=== PATIENT | female | born 1955 | race Caucasian/White ===

== ENCOUNTER 2017-12-09 16:46 | Emergency (ER) | payer MEDICARE, BC ==
[~2017-12-09] VITALS: Ht 152.4 cm; Wt 58.5 kg
[~2017-12-09 16:46] MED LIST: ABSORICA40 MG; ALPR.25 PO; CYAN1000I; ESTRADIOL TRAN TD; FURO40 PO; HYDCHL25; HYDPAM50; HYDR1TAB94; Hydroxyzine HCl50 MG PO; LAMO100; LOSA50; Micro-K10 MEQ PO; PANT40; PARO20; POTCHL10ER; PROP10 PO; RANI150; VERA120ERB; ZOLP10
== END 2017-12-09 17:21 | disposition home or self-care (01) ==
LOC: ER 16:46
DX: S61.011D Laceration without foreign body of right thumb without damage to nail, subsequent encounter (principal); I10 Essential (primary) hypertension; K21.9 Gastro-esophageal reflux disease without esophagitis; F41.9 Anxiety disorder, unspecified; Z88.8 Allergy status to other drugs, medicaments and biological substances; Z79.899 Other long term (current) drug therapy; W26.8XXD Contact with other sharp object(s), not elsewhere classified, subsequent encounter
CPT/HCPCS: 99281

== ENCOUNTER 2017-12-24 12:34 | Day surgery (SDC) | payer MEDICARE, BC ==
[~2017-12-24] VITALS: Ht 149.9 cm; Wt 59.0 kg
[2017-12-24] MEDS ORDERED: ALUM320SU (12:52)
== END 2017-12-24 13:52 | disposition home or self-care (01) ==
LOC: ORSCSDS 12:34
PROVIDERS: Internal Medicine Gastroenterology
PROC: 0DB68ZX Excision of Stomach, Via Natural or Artificial Opening Endoscopic, Diagnostic (ICD-10-PCS; principal; 2017-12-24 13:45)
PROC: 0DB98ZX Excision of Duodenum, Via Natural or Artificial Opening Endoscopic, Diagnostic (ICD-10-PCS; principal; 2017-12-24 13:45)
DX: K27.9 Peptic ulcer, site unspecified, unspecified as acute or chronic, without hemorrhage or perforation (principal); K21.9 Gastro-esophageal reflux disease without esophagitis; I10 Essential (primary) hypertension; E78.5 Hyperlipidemia, unspecified; R13.10 Dysphagia, unspecified; Z79.899 Other long term (current) drug therapy
CPT/HCPCS: 88305; 88342; J7120

== ENCOUNTER → 2019-03-29 | Outpatient (CLI) | payer MEDICARE, BC ==
[~2019-03-29] MED LIST changes: +ALUM320SU
[2019-03-29 15:10] LABS: Magnesium, Blood 1.7 mg/dL (1.6-2.4); Potassium, Blood 3.8 mmol/L (3.5-5.5)
[2019-03-29 15:25] LABS: Alanine Aminotransfer (ALT/SGP 29 U/L (12-78); Albumin, Blood 3.8 g/dL (3.4-5.0); Albumin/Globulin Ratio 1.5 (0.8-1.8); Alk Phos 83 U/L (50-136); Anion Gap 8 mmol/L (6-16); Aspartate Aminotrans (AST/SGOT 16 U/L (12-37); Bilirubin, Total 0.3 mg/dL (0.1-1.0); Blood Urea Nitrogen 8 mg/dL (8-24); Bun/Creatinine Ratio 16.9 (12.0-20.0); CO2, Blood 29 mmol/L (21-32); Calcium, Blood 8.9 mg/dL (8.5-10.1); Chloride, Blood 104 mmol/L (98-108); Creatinine, Blood 0.47 mg/dL (0.40-1.00); Globulin, Blood 2.5 g/dL (2.2-4.0); Glomerular Filtration Rate >60 (60-); Glucose, Blood 81 mg/dL (70-99); Potassium, Blood 3.8 mmol/L (3.5-5.5); Sodium, Blood 141 mmol/L (136-145); Total Protein, Blood 6.3 g/dL (6.4-8.2)
== END | disposition home or self-care (01) ==
LOC: LAB 12:40 → LAB SHORT 12:40 → LAB FUT 11-11 11:20 → EDSTATUS 11-11 11:20
PROVIDERS: Internal Medicine Hematology & Oncology; Internal Medicine Nephrology
DX: D50.9 Iron deficiency anemia, unspecified (principal); N18.2 Chronic kidney disease, stage 2 (mild); D63.1 Anemia in chronic kidney disease; E87.6 Hypokalemia; K21.9 Gastro-esophageal reflux disease without esophagitis; R60.9 Edema, unspecified
CPT/HCPCS: 80053; 83735; 84132

== ENCOUNTER → 2019-06-14 | Outpatient (CLI) | payer MEDICARE, BC ==
[2019-06-17 14:11] LABS: Stool Occult Bld Immuno 1 Negative (NEGATIVE)
== END | disposition home or self-care (01) ==
LOC: LAB 09:00 → LAB SHORT 09:00 → LAB FUT 05-26 16:05
PROVIDERS: Internal Medicine Hematology & Oncology
DX: D50.9 Iron deficiency anemia, unspecified (principal)
CPT/HCPCS: 82274

== ENCOUNTER → 2020-05-08 | Outpatient (CLI) | payer MEDICARE, BC | END | disposition home or self-care (01) | LOC: PLD 08:00 → LAB SHORT 08:00 | DX: C44.519 Basal cell carcinoma of skin of other part of trunk (principal) | CPT/HCPCS: 88305 ==

== ENCOUNTER → 2022-01-02 | Outpatient (CLI) | payer MEDICARE, BC ==
[~2022-01-02] MED LIST changes: +SERT25; +TRAM50
== END | disposition home or self-care (01) ==
LOC: LAB SHORT 14:00 → LAB 14:00
DX: R10.9 Unspecified abdominal pain (principal)
CPT/HCPCS: 87086

== ENCOUNTER → 2023-11-24 | Outpatient (CLI) | payer MEDICARE, BC | END | disposition home or self-care (01) | LOC: LAB 14:21 → LAB SHORT 14:21 | DX: D04.62 Carcinoma in situ of skin of left upper limb, including shoulder (principal) | CPT/HCPCS: 88305 ==

== ENCOUNTER → 2023-12-10 | Outpatient (CLI) | payer MEDICARE, BC | LOC: LAB 14:30 → LAB SHORT 14:30 | DX: D04.5 Carcinoma in situ of skin of trunk (principal) | CPT/HCPCS: 88305 ==

== ENCOUNTER → 2025-06-02 | Outpatient (CLI) | payer MEDICARE, BC ==
[2025-06-02 15:06] LABS: Stool Occult Bld Immuno 1 Negative (NEGATIVE)
== END ==
LOC: LAB 12:29 → LAB SHORT 12:29
PROVIDERS: Family Medicine
DX: D64.9 Anemia, unspecified (principal)
CPT/HCPCS: G0328